=== PATIENT | female | born 1995 | race Caucasian/White ===

== ENCOUNTER 2019-08-24 21:13 | Emergency (ER) | payer OTHER ==
[~2019-08-24] VITALS: Ht 180.3 cm; Wt 84.1 kg
[2019-08-24 21:19] VITALS: BP 127/81; TEMP 98.5
[2019-08-24 22:05] VITALS: PULSE 64
== END 2019-08-24 22:10 | disposition home or self-care (01) ==
LOC: COL.ER 21:13
DX: S01.01XA Laceration without foreign body of scalp, initial encounter (principal); R40.2412 Glasgow coma scale score 13-15, at arrival to emergency department; W22.01XA Walked into wall, initial encounter; Y93.68 Activity, volleyball (beach) (court)

== ENCOUNTER → 2019-09-02 | Outpatient (CLI) | payer OTHER ==
[2019-09-02 15:47] VITALS: BP 139/76; PULSE 70; TEMP 97.7
== END ==
LOC: COL.ER 15:44
DX: S01.91XD Laceration without foreign body of unspecified part of head, subsequent encounter (principal); X58.XXXD Exposure to other specified factors, subsequent encounter